=== PATIENT | male | born 1975 | race Caucasian/White ===

== ENCOUNTER → 2018-10-24 16:24 | Outpatient (CLI) | payer OTHER | END | disposition home or self-care (01) | LOC: LAB 16:24 | DX: R05 Cough (principal); J11.1 Influenza due to unidentified influenza virus with other respiratory manifestations ==

== ENCOUNTER 2019-11-18 09:16 | Emergency (ER) | payer OTHER ==
[~2019-11-18] VITALS: Ht 182.9 cm; Wt 102.1 kg
[2019-11-18] MEDS ORDERED: HYDROCHLOROTHIAZIDE (09:32)
[2019-11-18] MEDS ORDERED: LEVSIN/SL0.125 MG SL (14:14)
[2019-11-18] MEDS ORDERED: FLAGYL500MG PO (14:14)
== END 2019-11-18 14:22 | disposition home or self-care (01) ==
LOC: ER 09:16
DX: K52.9 Noninfective gastroenteritis and colitis, unspecified (principal); B34.9 Viral infection, unspecified; Z03.818 Encounter for observation for suspected exposure to other biological agents ruled out